=== PATIENT | female | born 1985 | race Caucasian/White ===

== ENCOUNTER 2019-04-23 16:41 | Emergency (ER) | payer SELFPAY ==
[2019-04-23] MEDS ORDERED: Ampicillin/Sulbactam Na 3 GM in Sodium Chloride 0.9% 100 ML IV ONE (16:56)
[2019-04-23] MEDS ORDERED: Morphine 2 MG/ML Syringe IVPUSH ONE (16:58)
[2019-04-23] MEDS ORDERED: Acetaminophen Soln 160 MG/5 ML UD Cup PO ONE (17:00)
[2019-04-23] MEDS ORDERED: Iopamidol 612 MG/ML 75 ML Bottle IVPUSH ONE (17:02)
[2019-04-23] MEDS ORDERED: Lactated Ringers 1,000 ML IV ONE (17:04)
--- NOTE | 2019-04-23 17:09 | EDM.PDOC ---
ED HPI GENERAL MEDICAL PROBLEM - General Stated Complaint: FACE SWOLLEN,CAN'T OPEN JAW [id number] Time Seen by Provider: 04/23/19 16:55 Source of Information: Reports: Patient History Limitations: Reports: No Limitations - History of Present Illness INITIAL COMMENTS - FREE TEXT/NARRATIVE: patient comes emergency Department today from home with concerns of swelling pain to the right side of her jaw. For about 5-7 days she has had increasing pain to her right side of her jaw at the angle of the jaw in front of her ear. It is slowly gotten worse swollen and more painful. Last night patient developed body aches and chills. Numbness to the right side of her face with quite a bit more of increasing swelling. Today she's been only able to only drink fluids orally. Unable to eat food as she cannot open her mouth very far. No difficulty swallowing but just can't open her mouth far enough. Has not had any recent ear infection recurrent ear infections or mastoiditis. Denies any difficulty with balance no vertigo symptoms. no shortness of breath or difficulty breathing. Right Cheek Pain Score (Numeric/FACES): 8 - Related Data Allergies Allergy/AdvReac Type Severity Reaction Status Date / Time Sulfa (Sulfonamide Allergy Anaphylactic Verified 04/23/19 17:42 Antibiotics) Shock Home Meds: Home Meds Acetaminophen [Tylenol Extra Strength] 500 mg PO Q4H 07/14/14 [History] Ibuprofen 800 mg PO Q6H 04/23/19 [History] ED ROS ENT - Review of Systems Review Of Systems: ROS reveals no pertinent complaints other than HPI. ED EXAM, ENT - Physical Exam Exam: See Below Text/Narrative:: entering the room and is very obvious that she has quite a bit of swelling erythema at the angle of the right jaw in the region of the parotid gland primarily. She can only open her mouth enough to maybe get a pencil between her teeth on the top and bottom. No drooling. No stridor Exam Limited By: No Limitations General Appearance: Alert, No Apparent Distress Eye Exam: Bilateral Eye: EOMI, Normal Inspection Ears: Normal External Exam, Normal Canal, Hearing Grossly Normal, Normal TMs. No: Mastoid Swelling, Mastoid Tenderness Nose: Normal Inspection, Normal Mucousa Mouth/Throat: No: Normal Inspection (I am unable to see really much past her teeth in the front and she can open it barely enough to put a pencil between the top and bottom. I sweep my finger along the outside of the teeth on the right side of the cheek and I do not feel any easily identiss to be drained. The swelling and tenderness appears to be outside of the oral cavity.), Drooling , Hoarse Voice Head: Atraumatic, Normocephalic Neck: Lymphadenopathy (R). No: Non-Tender (To the right side of the neck. ) Respiratory/Chest: No Respiratory Distress, Lungs Clear, Normal Breath Sounds Cardiovascular: Normal Peripheral Pulses, Regular Rate, Rhythm, Tachycardia GI/Abdominal: Normal Bowel Sounds, Soft, Non-Tender Extremities: Normal Inspection, Normal Range of Motion, Normal Capillary Refill Neurological: Alert, Oriented, No Motor/Sensory Deficits Skin: Intact, Diaphoretic, Erythema (generalized), Increased Warmth Course - Vital Signs Last Recorded V/S: Last Vital Signs Temp 38.4 C H 04/23/19 18:29 Pulse 129 H 04/23/19 17:43 Resp 19 04/23/19 17:43 BP 146/88 H 04/23/19 17:43 Pulse Ox 98 04/23/19 17:43 - Orders/Labs/Meds Orders: Active Orders 24 hr Category Date Time Status CULTURE BLOOD [BC] Stat Lab 04/23/19 17:00 Received CULTURE BLOOD [BC] Stat Lab 04/23/19 17:40 Received Blood Culture x2 Reflex Set [OM.PC] Stat Oth 04/23/19 16:57 Ordered Labs: Laboratory Tests 04/23/19 04/23/19 04/23/19 Range/Units 17:00 17:00 17:00 WBC 14.8 H (5.0-10.0) 10^3/uL RBC 4.91 (4.2-5.4) 10^6/uL Hgb 14.2 D (12.0-16.0) g/dL Hct 42.3 (37.0-47.0) % MCV 86.2 (80-100) fL MCH 28.9 (27.0-34.0) pg MCHC 33.6 (33.0-35.0) g/dL Plt Count 331 D (150-450) 10^3/uL Neut % (Auto) 85.3 H (42.2-75.2) % Lymph % (Auto) 8.9 L (20.5-50.1) % [place] % (Auto) 5.4 (2-8) % Eos % (Auto) 0.3 L (1.0-3.0) % Baso % (Auto) 0.1 (0.0-1.0) % Sodium 135 (135-145) mmol/L Potassium 3.1 L (3.6-5.0) mmol/L Chloride 98 L (101-111) mmol/L Carbon Dioxide 23.0 (21.0-31.0) mmol/L Anion Gap 17.1 BUN < 5 L (7-18) mg/dL Creatinine 0.6 (0.6-1.3) mg/dL Est Cr Clr Drug Dosing TNP Estimated GFR (MDRD) > 60 BUN/Creatinine Ratio 8.33 Glucose 157 H (74-105) mg/dL Lactic Acid 0.9 (0.5-2.2) mmol/L Calcium 9.0 (8.4-10.2) mg/dl Total Bilirubin 0.8 (0.2-1.0) mg/dL AST 22 (10-42) IU/L ALT 20 (10-60) IU/L Alkaline Phosphatase 99 (42-121) IU/L C-Reactive Protein (0.0-1.3) mg/dL Total Protein 8.3 H (6.7-8.2) g/dl Albumin 4.0 (3.2-5.5) g/dl Globulin 4.3 Albumin/Globulin Ratio 0.93 04/23/19 Range/Units 17:00 WBC (5.0-10.0) 10^3/uL RBC (4.2-5.4) 10^6/uL Hgb (12.0-16.0) g/dL Hct (37.0-47.0) % MCV (80-100) fL MCH (27.0-34.0) pg MCHC (33.0-35.0) g/dL Plt Count (150-450) 10^3/uL Neut % (Auto) (42.2-75.2) % Lymph % (Auto) (20.5-50.1) % [place] % (Auto) (2-8) % Eos % (Auto) (1.0-3.0) % Baso % (Auto) (0.0-1.0) % Sodium (135-145) mmol/L Potassium (3.6-5.0) mmol/L Chloride (101-111) mmol/L Carbon Dioxide (21.0-31.0) mmol/L Anion Gap BUN (7-18) mg/dL Creatinine (0.6-1.3) mg/dL Est Cr Clr Drug Dosing Estimated GFR (MDRD) BUN/Creatinine Ratio Glucose (74-105) mg/dL Lactic Acid (0.5-2.2) mmol/L Calcium (8.4-10.2) mg/dl Total Bilirubin (0.2-1.0) mg/dL AST (10-42) IU/L ALT (10-60) IU/L Alkaline Phosphatase (42-121) IU/L C-Reactive Protein 19.5 H (0.0-1.3) mg/dL Total Protein (6.7-8.2) g/dl Albumin (3.2-5.5) g/dl Globulin Albumin/Globulin Ratio Meds: Medications Discontinued Medications Generic Name Dose Route Start Last Admin Trade Name Freq PRN Reason Stop Dose Admin Acetaminophen 650 mg 04/23/19 17:00 04/23/19 17:20 Tylenol Solution PO 04/23/19 17:01 650 mg ONETIME ONE Administration Ampicillin Sodium/Sulbactam 100 mls @ 100 mls/hr 04/23/19 16:56 04/23/19 17: 33 Sodium 3 gm/ Sodium Chloride IV 04/23/19 17:55 100 mls/hr ONETIME ONE Administration Lactated Ringer's 1,000 mls @ 1,000 mls/hr 04/23/19 17:04 04/23/19 17:33 Ringers, Lactated IV 04/23/19 18:03 1,000 mls/hr .BOLUS ONE Administration Iopamidol 75 ml 04/23/19 17:02 04/23/19 17:05 Isovue-300 (61%) IVPUSH 04/23/19 17:03 75 ml ONETIME ONE Administration Ketorolac Tromethamine 30 mg 04/23/19 19:14 04/23/19 19:20 Toradol IVPUSH 04/23/19 19:15 30 mg ONETIME ONE Administration Lidocaine HCl 30 ml 04/23/19 19:14 04/23/19 19:20 Xylocaine-Mpf 1% INJECT 04/23/19 19:15 30 ml ONETIME ONE Administration Methylprednisolone Sodium Succinate 125 mg 04/23/19 18:29 04/23/19 18:42 Solu-Medrol IVPUSH 04/23/19 18:30 125 mg ONETIME ONE Administration Morphine Sulfate 2 mg 04/23/19 16:58 04/23/19 17:21 Morphine IVPUSH 04/23/19 16:59 2 mg ONETIME ONE Administration - Radiology Interpretation Free Text/Narrative:: IMPRESSION: 1. Right mandibular abscess measuring 1.5 x 2.4 cm. This is associated with dental disease in the posterior most mandibular molar on the right. Consider dental evaluation. 2. Edema of the right masseter muscle consistent with myositis. 3. Regional right submandibular lymphadenopathy measuring up to 1.5 cm in short axis. This is likely reactive. 4. Cellulitis in the right jaw. 5. Followup to resolution of these findings to ensure no other underlying sinister pathology is present. Thank you for allowing us to participate in the care of your patient. Dictated and Authenticated by: Benji Lima MD 04/23/2019 5:55 PM Central Time ([place] & [place]) - Re-Assessments/Exams Free Text/Narrative Re-Assessment/Exam: 04/23/19 17:12 Blood cultures x2 IV LR 1 liter wide open. Unasyn 3 grams IVPB Morphine 2mg IVP Oral solution of acetaminophen. 04/23/19 19:32 [facility] attempt to drain if an identifiable site of fluxuance. Which ther is a small lateral mandibular fluance with 1% lidocaine as local and a 18# needle I was unable to get any fluid or purulent after risk and benefits explained to the patient and verbal consent obtained. Small amount of bleeding in the oropharynx no other problems. I then contacted Dr. Ramos at [facility]. HPI ER COURSE findings and concerns were relayed to him. He accepted the patient in transfer at this time. The patient is comfortable with the plan. Departure - Departure Time of Disposition: 19:30 Disposition: DC/Tfer to Acute Hospital 02 Clinical Impression: Mandibular abscess - Discharge Information - My Orders Last 24 Hours: My Active Orders 04/23/19 16:57 Blood Culture x2 Reflex Set [OM.PC] Stat 04/23/19 17:00 CULTURE BLOOD [BC] Stat 04/23/19 17:40 CULTURE BLOOD [BC] Stat - Assessment/Plan Last 24 Hours: My Active Orders 04/23/19 16:57 Blood Culture x2 Reflex Set [OM.PC] Stat 04/23/19 17:00 CULTURE BLOOD [BC] Stat 04/23/19 17:40 CULTURE BLOOD [BC] Stat Assessment:: Right mandibular abscess Attempted I/D dental disease. Plan: Plan transfer to [facility] for further care and evaluation to be seen in the ED first then contact Dr. Ramos.
[2019-04-23 17:33] LABS: ANION GAP 17.1; CHLORIDE,CL 98 mmol/L (101-111); SODIUM,NA 135 mmol/L (135-145)
[2019-04-23 18:02] VITALS: BP 146/88
[2019-04-23] MEDS ORDERED: methylPREDNISolone Sodium Succinate 125 MG/2 ML SDV IVPUSH ONE (18:29)
[2019-04-23] MEDS ORDERED: Lidocaine 1% 30 ML SDV INJECT ONE (19:14)
[2019-04-23] MEDS ORDERED: Ketorolac 30 MG/ML SDV IVPUSH ONE (19:14)
== END 2019-04-23 20:11 ==
LOC: DL.ED 16:41
DX: K12.2 Cellulitis and abscess of mouth (principal); K08.89 Other specified disorders of teeth and supporting structures; Z88.2 Allergy status to sulfonamides
CPT/HCPCS: 36415; 70491; 80053; 83605; 85025; 86140; 87040; 96365; 96368; 96375; 99284; A9270; J0295; J1885; J2001; J2270; J2930; J7050; J7120; Q9967